=== PATIENT | male | born 1980 | race Caucasian/White ===

== ENCOUNTER 2021-11-02 08:07 | Emergency (ER) | payer OTHER ==
[2021-11-02 08:45] LABS: Absolute Lymphocytes (CBC) 1.6 K/uL (0.7-4.9); Hematocrit 46.9 % (39.6-49.0); Lymphocytes % 29.5 % (15.3-44.8); MPV 9.8 fL (7.6-11.3); RBC Red Blood Cell Count 5.43 M/uL (4.33-5.43)
--- NOTE | 2021-11-02 08:48 | RAD REPORT ---
EXAM DESCRIPTION: CT - Head Brain Wo Cont - 11/02/2021 8:40 am CLINICAL HISTORY: NUMBNESS COMPARISON: No comparisons TECHNIQUE: All CT scans are performed using dose optimization technique as appropriate and may inclu de automated exposure control or mA/KV adjustment according to patient size. FINDINGS: No intracranial hemorrhage, hydrocephalus or extra-axial fluid collection.No areas of brai n edema or evidence of midline shift. The paranasal sinuses and mastoids are clear. The calvarium is intact. IMPRESSION: No acute intracranial abnormality.
[2021-11-02 09:02] LABS: Potassium 3.8 mmol/L (3.5-5.1); Troponin High Sensitivity 5.8 pg/mL (<58.9)
--- NOTE | 2021-11-02 09:30 | RAD REPORT ---
EXAM DESCRIPTION: RAD - Chest Single View - 11/02/2021 9:05 am CLINICAL HISTORY: CHEST PAIN COMPARISON: No comparisonsNo comparisons FINDINGS: Lines: None. Lungs: No evidence of edema or pneumonia. Pleural: No significant pleural effusions or pneumothorax. Cardiac: The heart size is within normal limits. Bones: No acute fractures. Other: IMPRESSION: No acute cardiopulmonary disease.
--- NOTE | 2021-11-02 09:39 | EDPHYS ---
Physician Documentation [facility] Name: Nacho San Age: 41 yrs Sex: Male : 1980 Arrival Date: 11/02/2021 Time: 08:08 Bed 13 Private MD: Ld Reno ED Physician Vinayak Howard HPI: 11/02 08:52 This 41 yrs old Male presents to ER via Ambulatory with complaints of Chest Pain. kb 08:53 The patient or guardian reports chest pain that is located primarily in the substernal kb area. Onset: 5 day(s) ago. The pain radiates to the left arm, back. Associated signs and symptoms: Pertinent positives: numbness and tingling to bilateral upper extremities, worse on the left. The chest pain is described as aching. Duration: The patient or guardian reports a single episode. Modifying factors: The symptoms are alleviated by nothing. the symptoms are aggravated by nothing. Severity of pain: At its worst the pain was moderate in the emergency department the pain is unchanged. The patient has not experienced similar symptoms in the past. The patient has not recently seen a physician. Pt states he has had pain to chest for 5-6 days. States the pain gets better and worse, but never goes away completely. Reports numbness and tingling to bilateral upper extremities, worse in the left. States he has had similar episodes of chest pain in the past that ended up being GERD or anxiety, but it has never gone into left arm. . Historical: - Allergies: 08:18 No Known Allergies; jd3 - Home Meds: 08:18 GERD med [Active]; jd3 - PMHx: 08:18 GERD; Anxiety; jd3 - PSHx: 08:18 hernia reapair; jd3 - Immunization history:: Adult Immunizations up to date, Client reports receiving the 2nd dose of the Covid vaccine, Flu vaccine is not up to date. - Social history:: Smoking status: Patient denies any tobacco usage or history of. ROS: 08:52 Constitutional: Negative for fever, chills, and weight loss. kb 08:52 Cardiovascular: Positive for chest pain, Negative for edema, orthopnea, palpitations, paroxysmal nocturnal dyspnea. 08:52 All other systems are negative. 08:52 Neuro: Positive for numbness, tingling, of the left arm. kb Exam: 08:52 Constitutional: This is a well developed, well nourished patient who is awake, alert, kb and in no acute distress. Head/Face: Normocephalic, atraumatic. Eyes: Pupils equal round and reactive to light, extra-ocular motions intact. Lids and lashes normal. Conjunctiva and sclera are non-icteric and not injected. Cornea within normal limits. Periorbital areas with no swelling, redness, or edema. ENT: Moist Mucous membranes Cardiovascular: Regular rate and rhythm with a normal S1 and S2. No gallops, murmurs, or rubs. No pulse deficits. Respiratory: Respirations even and unlabored. No increased work of breathing. Talking in full sentences Skin: Warm, dry with normal turgor. Normal color. MS/ Extremity: Pulses equal, no cyanosis. Neurovascular intact. Full, normal range of motion. Neuro: Awake and alert, GCS 15, oriented to person, place, time, and situation. Moves all extremities. Normal gait. Psych: Awake, alert, with orientation to person, place and time. Behavior, mood, and affect are within normal limits. 09:19 ECG was reviewed by the Attending Physician. Vital Signs: 08:18 BP 135 / 98; Pulse 71; Resp 18 S; Temp 98.0(O); Pulse Ox 100% on R/A; Weight 104.33 kg jd3 (R); Height 5 ft. 10 in. (177.80 cm) (R); Pain 4/10; 08:26 BP 132 / 87; Pulse 64; Resp 16; Pulse Ox 100% on R/A; vg1 08:30 BP 133 / 81; Pulse 62; Resp 16; Pulse Ox 100% on R/A; vg1 08:18 Body Mass Index 33.00 (104.33 kg, 177.80 cm) jd3 MDM: 08:10 Patient medically screened. 08:52 Data reviewed: vital signs, nurses notes. Data interpreted: Pulse oximetry: on room air kb is 100 %. Interpretation: normal. 09:17 Counseling: I had a detailed discussion with the patient and/or guardian regarding: the kb historical points, exam findings, and any diagnostic results supporting the discharge/admit diagnosis, lab results, radiology results, the need for outpatient follow up, a family practitioner, to return to the emergency department if symptoms worsen or persist or if there are any questions or concerns that arise at home. 09:37 HEART Score: History: Slightly Suspicious (0), ECG: Normal (0), Age: < or = 45 years kb (0), Risk Factors: 1 or 2 risk factors (1), [+ Family HX] Troponin: < or = 1 x Normal Limit (0), Total Score = 1. 11/02 08:27 Order name: Basic Metabolic Panel; Complete Time: 09:03 kb 11/02 08:27 Order name: CBC with Diff; Complete Time: 08:50 kb 11/02 08:27 Order name: NT PRO-BNP; Complete Time: 09:03 kb 11/02 08:27 Order name: Troponin HS; Complete Time: 09:03 kb 11/02 08:27 Order name: XRAY Chest (1 view); Complete Time: 09:37 kb 11/02 08:27 Order name: CT Head Brain wo Cont; Complete Time: 08:50 kb 11/02 08:27 Order name: EKG; Complete Time: 08:28 kb 11/02 08:27 Order name: Cardiac monitoring; Complete Time: 08:38 kb 11/02 08:27 Order name: EKG - Nurse/Tech; Complete Time: 08:39 kb 04 08:27 Order name: IV Saline Lock; Complete Time: 08:38 kb 11/02 08:27 Order name: Labs collected and sent; Complete Time: 08:38 kb 04 08:27 Order name: O2 Per Protocol; Complete Time: 08:38 kb 11/02 08:27 Order name: O2 Sat Monitoring; Complete Time: 08:38 kb EC:19 Rate is 62 beats/min. Rhythm is regular. QRS [place] is Normal. [place] interval is normal at kb 160 msec. QRS interval is normal at 110 msec. QT interval is normal at 420 msec. Administered Medications: 10:03 Drug: GI Cocktail without - (Maalox Suspension 30 ml, Lidocaine Liquid 2 % 15 vg1 ml) Route: PO; 10:58 Follow up: Response: No adverse reaction; Marked relief of symptoms vg1 Disposition: 12:58 Co-signature as Attending Physician, Vinayak Howard MD I agree with the assessment and kdr plan of care. Disposition Summary: 11/02/21 09:38 Discharge Ordered Location: Home kb Condition: Stable kb Diagnosis - Chest pain, unspecified kb Followup: kb - With: Emergency Department - When: As needed - Reason: Worsening of condition Followup: kb - With: Private Physician - When: 2 - 3 days - Reason: Recheck today's complaints, Continuance of care, Re-evaluation by your physician Discharge Instructions: - Discharge Summary Sheet kb - Nonspecific Chest Pain, Adult, [id number] kb Forms: - Medication Reconciliation Form kb - Thank You Letter kb - Antibiotic Education kb - Prescription Opioid Use kb Signatures: Dispatcher [employer] EDMS Poly Moya, WELDER/FABRICATOR-C WELDER/FABRICATOR-Malachib Vinayak Howard MD MD kdr Davies, Jonathon RN RN jd3 Evelia Larson RN RN vg1
--- NOTE | 2021-11-02 09:39 | ER ---
Nurse's Notes [facility] Name: Nacho San Age: 41 yrs Sex: Male : 1980 Arrival Date: 11/02/2021 Time: 08:08 Bed 13 Private MD: Ld Reno Diagnosis: Chest pain, unspecified Presentation: 11/02 08:16 Chief complaint: Patient states: "chest pain that came to my left arm that makes it jd3 feel numb since Sunday or Sunday.". Coronavirus screen: At this time, the client does not indicate any symptoms associated with coronavirus-19. Ebola Screen: No symptoms or risks identified at this time. Initial Sepsis Screen: Does the patient meet any 2 criteria? No. Patient's initial sepsis screen is negative. Does the patient have a suspected source of infection? No. Patient's initial sepsis screen is negative. Risk Assessment: Do you want to hurt yourself or someone else? Patient reports no desire to harm self or others. Onset of symptoms was October 29, 2021. 08:16 Method Of Arrival: Ambulatory jd3 08:16 Acuity: ROSALIE 3 jd3 Historical: - Allergies: 08:18 No Known Allergies; jd3 - Home Meds: 08:18 GERD med [Active]; jd3 - PMHx: 08:18 GERD; Anxiety; jd3 - PSHx: 08:18 hernia reapair; jd3 - Immunization history:: Adult Immunizations up to date, Client reports receiving the 2nd dose of the Covid vaccine, Flu vaccine is not up to date. - Social history:: Smoking status: Patient denies any tobacco usage or history of. Screenin:15 Abuse screen: Denies threats or abuse. Nutritional screening: No deficits noted. vg1 Tuberculosis screening: No symptoms or risk factors identified. Fall Risk No fall in past 12 months (0 pts). No secondary diagnosis (0 pts). IV access (20 points). Ambulatory Aid- None/Bed Rest/Nurse Assist (0 pts). Gait- Normal/Bed Rest/Wheelchair (0 pts) Mental Status- Oriented to own ability (0 pts). Total Quintana Fall Scale indicates No Risk (0-24 pts). Assessment: 08:15 General: Appears in no apparent distress. comfortable, Behavior is calm, cooperative. vg1 Pain: Complains of pain in anterior aspect of right upper chest, anterior aspect of left upper chest and mid-sternal area Pain radiates to left arm and upper back Pain currently is 2 out of 10 on a pain scale. Pain began Sunday10/28/21. Neuro: Level of Consciousness is awake, alert, obeys commands, Oriented to person, place, time, situation, Reports numbness in left arm. Cardiovascular: Patient's skin is warm and dry. Rhythm is regular. Respiratory: Airway is patent Respiratory effort is even, unlabored. GI: Patient currently denies nausea, vomiting. : No signs and/or symptoms were reported regarding the genitourinary system. EENT: No signs and/or symptoms were reported regarding the EENT system. Derm: Skin is intact, is healthy with good turgor. Musculoskeletal: Circulation, motion, and sensation intact. Vital Signs: 08:18 BP 135 / 98; Pulse 71; Resp 18 S; Temp 98.0(O); Pulse Ox 100% on R/A; Weight 104.33 kg jd3 (R); Height 5 ft. 10 in. (177.80 cm) (R); Pain 4/10; 08:26 BP 132 / 87; Pulse 64; Resp 16; Pulse Ox 100% on R/A; vg1 08:30 BP 133 / 81; Pulse 62; Resp 16; Pulse Ox 100% on R/A; vg1 08:18 Body Mass Index 33.00 (104.33 kg, 177.80 cm) jd3 ED Course: 08:08 Patient arrived in ED. as 08:08 Ld Reno is Private Physician. as 08:09 Poly Moya FNP-C is [facility]. kb 08:09 Vinayak Howard MD is Attending Physician. kb 08:13 Evelia Larson, KALEB is Primary Nurse. vg1 08:15 Patient has correct armband on for positive identification. Placed in gown. Bed in low vg1 position. Call light in reach. Side rails up X 1. athletic monitor on. Pulse ox on. NIBP on. 08:17 Triage completed. jd3 08:18 Initial lab(s) drawn, by me, sent to lab. Inserted saline lock: 20 gauge in right vg1 antecubital area, using aseptic technique. Blood collected. 08:18 Patient maintains SpO2 saturation greater than 95% on room air. vg1 08:19 Arm band placed on. jd3 08:41 CT Head Brain wo Cont In Process Unspecified. EDMS 09:07 XRAY Chest (1 view) In Process Unspecified. EDMS 10:59 No provider procedures requiring assistance completed. IV discontinued, intact, vg1 bleeding controlled, No redness/swelling at site. Pressure dressing applied. Administered Medications: 10:03 Drug: GI Cocktail without - (Maalox Suspension 30 ml, Lidocaine Liquid 2 % 15 vg1 ml) Route: PO; 10:58 Follow up: Response: No adverse reaction; Marked relief of symptoms vg1 Outcome: 09:38 Discharge ordered by . tray 10:59 Discharged to home ambulatory. vg1 10:59 Condition: good 10:59 Discharge instructions given to patient, Instructed on discharge instructions, follow up and referral plans. Demonstrated understanding of instructions, follow-up care. 10:59 Patient left the ED. vg1 Signatures: Dispatcher [employer] EDMS Poly Moya, NIGHT SUPERVISOR-C NIGHT SUPERVISOR-Amrita Rivers Jonathon, RN RN Evelia Kirby RN RN vg1
[2021-11-02] MEDS ORDERED: LIDOCAINE VISCOUS 2% SOLN 15 ML UDC ONE (10:03)
[2021-11-02] MEDS ORDERED: MAGNES/ALUMIN/SIMET 30ML UCUP ONE (10:03)
[2021-11-02 20:32] VITALS: TEMP 98; O2SAT 100
[2021-11-02 20:37] VITALS: BP 133/81
== END 2021-11-02 10:59 | disposition home or self-care (01) ==
LOC: ER 08:07
DX: R07.9 Chest pain, unspecified (principal); K21.9 Gastro-esophageal reflux disease without esophagitis; F41.9 Anxiety disorder, unspecified
CPT/HCPCS: 36415; 70450; 71045; 80048; 83880; 84484; 85025; 93005; 99285

== ENCOUNTER 2022-01-26 10:11 | Day surgery (SDC) | payer OTHER ==
[2022-01-24 17:02] LABS: SARS-CoV-2 Antigen Rapid Res Negative (Negative)
[2022-01-26] MEDS ORDERED: Ringers Lactate 1,000 ML IV ONE (10:32)
[2022-01-26] MEDS ORDERED: propofoL 200 MG/20 ML VIAL IV ONE (11:09)
[2022-01-26] MEDS ORDERED: LIDOCAINE 1% MPF 5 ML VIAL ONE (11:09)
--- NOTE | 2022-01-26 11:43 | ENDO RPT ---
[address], [address] EGD PROCEDURE REPORT EXAM DATE: 01/26/2022 PATIENT NAME: Nacho San MR#: [id number] BIRTHDATE: 1980 ATTENDING: Terrell Carver DR STATUS: outpatient SOLOIST DANCER: Ayla Knapp RN and Yohan Sierra [facility] INDICATIONS: The patient is a 41 yr old Male here for an EGD due to epigastric pain PROCEDURE PERFORMED: EGD with biopsy for H. pylori MEDICATIONS: Per Anesthesia. TOPICAL ANESTHETIC: none CONSENT: The patient understands the risks and benefits of the procedure and understands that these risks include, but are not limited to: sedation, allergic reaction, infection, perforation and/or bleeding. Alternative means of evaluation and treatment include, among others: physical exam, x-rays, and/or surgical intervention. The patient elects to proceed with this endoscopic procedure. DESCRIPTION OF PROCEDURE: During intra-op preparation period all mechanical medical equipment was checked for proper function. Hand hygiene and appropriate measures for infection prevention was taken. Procedure, possible complications, and alternatives including but not limited to the possibility of bleeding, perforation, tear, infection, sepsis, need for surgery, need for blood transfusion, and anesthesia related complications were explained to the patient. After the risks, benefits and alternatives of the procedure were thoroughly explained, Informed consent was verified, confirmed and timeout was successfully executed by the treatment team. The patient was placed in the left lateral position. The patient was anesthetized with topical anesthesia. Through the anesthetized oropharyngeal area, the scope was passed without any difficulty. The EG-[id number] ([id number]) endoscope was introduced through the mouth and advanced to the second portion of the duodenum. Retroflexed views revealed no abnormalities. The gastroscope was then slowly withdrawn and removed. Duodenitis was found in the second portion of the duodenum. With standard forceps, a biopsy was obtained and sent to pathology. Mild gastritis was found in the body and the antrum of the stomach. Multiple biopsies were obtained and sent to pathology. Bile reflux was found in the gastroesophageal junction. With standard forceps, a biopsy was obtained and sent to pathology. ADVERSE EVENTS: There were no complications. IMPRESSIONS: 1. Duodenitis was found in the second portion of the duodenum 2. Mild gastritis was found in the body and the antrum of the stomach 3. Bile reflux was found in the gastroesophageal junction RECOMMENDATIONS: 1. anti-reflux regimen 2. acid suppression therapy 3. await biopsy results 4. follow-up: office 2 week(s) 5. avoid NSAIDS 6. follow-up of helicobacter pylori status, treat if indicated REPEAT EXAM: Terrell Carver DR eSigned: Terrell Carver DR 01/26/2022 11:42 AM cc: CPT CODES: ICD9 CODES: PATIENT NAME: Nacho San MR#: [id number]
[2022-01-26 12:23] VITALS: TEMP 97.5
[2022-01-26 12:24] VITALS: BP 113/72; O2SAT 99
== END 2022-01-26 12:25 | disposition home or self-care (01) ==
LOC: OR 10:11
PROVIDERS: ATTEND Surgery
PROC: 0DB78ZX Excision of Stomach, Pylorus, Via Natural or Artificial Opening Endoscopic, Diagnostic (ICD-10-PCS; 2022-01-26)
PROC: 0DB68ZX Excision of Stomach, Via Natural or Artificial Opening Endoscopic, Diagnostic (ICD-10-PCS; 2022-01-26)
PROC: 0DB48ZX Excision of Esophagogastric Junction, Via Natural or Artificial Opening Endoscopic, Diagnostic (ICD-10-PCS; 2022-01-26)
PROC: 0DB98ZX Excision of Duodenum, Via Natural or Artificial Opening Endoscopic, Diagnostic (ICD-10-PCS; principal; 2022-01-26 12:00)
DX: K29.50 Unspecified chronic gastritis without bleeding (principal); K29.80 Duodenitis without bleeding; K21.9 Gastro-esophageal reflux disease without esophagitis; Z20.822 Contact with and (suspected) exposure to COVID-19
CPT/HCPCS: 36415; 88312; 88305; 87811; 43239; J2704; J7120